=== PATIENT | female | born 1930 | race Caucasian/White ===

== ENCOUNTER → 2017-06-24 | Outpatient (CLI) | payer MEDICARE, OTHER | LOC: M.CT 06-20 16:29 | DX: S32.591A Other specified fracture of right pubis, initial encounter for closed fracture (principal); Q79.9 Congenital malformation of musculoskeletal system, unspecified; K43.9 Ventral hernia without obstruction or gangrene; M25.78 Osteophyte, vertebrae; I70.0 Atherosclerosis of aorta; R91.8 Other nonspecific abnormal finding of lung field; R26.81 Unsteadiness on feet; M19.91 Primary osteoarthritis, unspecified site; J06.9 Acute upper respiratory infection, unspecified; I25.10 Atherosclerotic heart disease of native coronary artery without angina pectoris; I10 Essential (primary) hypertension; E78.5 Hyperlipidemia, unspecified; K21.9 Gastro-esophageal reflux disease without esophagitis; Z95.0 Presence of cardiac pacemaker; X58.XXXA Exposure to other specified factors, initial encounter; Y93.89 Activity, other specified; Y92.89 Other specified places as the place of occurrence of the external cause; Y99.8 Other external cause status ==